=== PATIENT | male | born 1985 | race Two or more races ===

== ENCOUNTER 2025-02-13 07:00 | Emergency (ER) | payer OTHER ==
[~2025-02-13] VITALS: Ht 180.3 cm; Wt 65.8 kg
[2025-02-13] MEDS ORDERED: Ketorolac Tromethamine 30mg Vial IV ONE (07:10)
== END 2025-02-13 10:22 | disposition home or self-care (01) ==
LOC: ER 07:00
DX: I47.10 Supraventricular tachycardia, unspecified (principal); T42.4X1A Poisoning by benzodiazepines, accidental (unintentional), initial encounter
CPT/HCPCS: 93005; 93010; 96374; 99284-25; J1885